=== PATIENT | male | born 1975 | race Caucasian/White ===

== ENCOUNTER 2023-10-10 01:13 | Emergency (ER) | payer SELFPAY ==
[~2023-10-10] VITALS: Ht 165.1 cm; Wt 72.6 kg
[2023-10-10 01:17] VITALS: BP 134/59; PULSE 110; RESP 16; TEMP 98.2; O2SAT 97
[2023-10-10] MEDS: LORazepam 1 MG TAB PO ONE ×2 (01:28→01:46)
[2023-10-10 01:47] VITALS: BP 128/63; PULSE 102; RESP 16; TEMP 98.2; O2SAT 97
== END 2023-10-10 01:47 ==
LOC: MED 01:13
DX: F19.10 Other psychoactive substance abuse, uncomplicated (principal); Z86.79 Personal history of other diseases of the circulatory system
CPT/HCPCS: 99283